=== PATIENT | female | born 1985 | race Caucasian/White ===

== ENCOUNTER 2019-01-23 16:24 | Emergency (ER) | payer OTHER ==
[~2019-01-23 16:24] MED LIST: ISOVUE-370 76%-LOCM 1 ML ONE
[2019-01-23 16:57] LABS: #Eosinphils 0.3 thou/uL (0.0-0.7); #Lymphocytes 2.4 thou/uL (1.20-3.40); #Monocytes 0.4 thou/uL (0.11-0.59); #Neutrophils 4.1 thou/uL (1.40-6.50); %Basophils 0.6 % (0.0-1.0); %Eosinophils 3.9 % (0.0-10.0); %Lymphocytes 33.3 % (21.0-51.0); %Monocytes 4.9 % (0.0-10.0); %Neutrophils 57.4 % (42.0-75.0); Hemoglobin 13.4 g/dL (12.0-16.0); Mean Corpuscular HGB CONC 34.8 g/dL (32.0-36.0); Mean Corpuscular Hemoglobin 32.2 pg (27.0-31.0); Mean Corpuscular Volume 92.5 fL (78.0-98.0); Mean Platelet Volume 6.5 fL (7.4-10.4); Platelet Count 205 thou/uL (130-400); RBC Distribution Width 11.2 % (11.5-14.5); Red Blood Cell (RBC) Count 4.16 mill/uL (4.20-5.40); White Blood Cell (WBC) Count 7.2 thou/uL (4.8-10.8)
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
[2019-01-23 17:10] LABS: Bacteria/HPF 1+ HPF (None Seen); Bilirubin Negative (Negative); Blood, Urine 2+ (Negative); Clarity Turbid (Clear); Glucose, Urine (Dipstick) Normal (Negative); Leukocyte Negative Leu/uL (Negative); Nitrite Negative (Negative); Protein, Urine (Dipstick) Negative (Neg-Trace); Urobilinogen Normal mg/dL (Less than 2)
[2019-01-23 17:19] LABS: ALT (SGPT) 9 U/L (8-55); AST (SGOT) 11 U/L (5-34); Albumin 4.1 g/dL (3.5-5.0); Alkaline Phosphatase 51 U/L (40-150); Anion Gap 12 mmol/L (10-20); BUN (Urea Nitrogen) 10 mg/dL (7.0-18.7); Bilirubin, Total 0.2 mg/dL (0.2-1.2); Calc. Creatinine Clearance 0 mL/min (70-130); Calcium 9.4 mg/dL (7.8-10.44); Carbon Dioxide 24 mmol/L (22-29); Chloride 106 mmol/L (98-107); Estimated GFR-MDRD 86; Globulin 2.7 g/dL (2.4-3.5); Glucose 100 mg/dL (70-105); Potassium 3.4 mmol/L (3.5-5.1); Protein, Total 6.8 g/dL (6.0-8.3); Sodium 139 mmol/L (136-145)
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
[2019-01-23] MEDS ORDERED: HYDROcodone/Acetaminophen 10/325 mg Tablet ONE (19:00)
[2019-01-23] MEDS ORDERED: Ketorolac Tromethamine 30 MG/ML VIAL ONE (19:00)
== END 2019-01-23 20:16 | disposition home or self-care (01) ==
LOC: ERS 16:24
DX: R10.31 Right lower quadrant pain (principal); R10.32 Left lower quadrant pain; M54.2 Cervicalgia; V89.2XXA Person injured in unspecified motor-vehicle accident, traffic, initial encounter
CPT/HCPCS: 71045; 72125; 74177; 80053; 81003; 85025; 93005; 96374; J1885; Q9966

== ENCOUNTER 2020-01-04 11:12 | Outpatient (CLI) | payer OTHER ==
[2020-01-05 13:13] LABS: SARS-CoV-2 MS2 Positive; SARS-CoV-2 N Gene Negative; SARS-CoV-2 S Gene Negative; SARS-CoV-2 orf1ab Negative
== END 2020-01-04 11:13 | disposition home or self-care (01) ==
LOC: LABBT 11:12
PROVIDERS: ATTEND Obstetrics & Gynecology
DX: Z01.812 Encounter for preprocedural laboratory examination (principal); Z11.59 Encounter for screening for other viral diseases
CPT/HCPCS: 87635; U0003

== ENCOUNTER 2020-01-06 11:40 | Inpatient (IN) | payer OTHER ==
[~2020-01-06 11:40] MED LIST changes: +Bupivacaine/Epinephrine 0.25% 30 ML VIAL ONE; -ISOVUE-370 76%-LOCM 1 ML ONE
[2020-01-06] MEDS ORDERED: Zolpidem Tartrate 5 MG TAB PO PRN (12:09)
[2020-01-06] MEDS ORDERED: Lidocaine 1% (PF) 30 ML VIAL SC PRN (12:09)
[2020-01-06] MEDS ORDERED: Misoprostol 100 MCG TAB VAG SCH (12:09)
[2020-01-06] MEDS ORDERED: Carboprost 250 MCG/ML AMP IM PRN (12:09)
[2020-01-06] MEDS ORDERED: Promethazine HCl 25 MG/ML VIAL IM PRN ×2 (12:09→14:18)
[2020-01-06] MEDS ORDERED: Methylergonovine 0.2 MG/ML VIAL IM PRN (12:09)
[2020-01-06] MEDS ORDERED: Acetaminophen 500 MG TAB PO PRN (12:09)
[2020-01-06] MEDS ORDERED: Diphenoxylate HCl/Atropine Tablet PO PRN ×2 (12:09)
[2020-01-06] MEDS ORDERED: hydrALAZINE 20 MG/ML VIAL SLOW IVP PRN ×2 (12:09→17:22)
[2020-01-06] MEDS ORDERED: Misoprostol 200 MCG TAB PR PRN (12:09)
[2020-01-06] MEDS ORDERED: NS w/ Oxytocin 10 units 500 ML IV SCH (12:09)
[2020-01-06] MEDS ORDERED: Ondansetron PF 4 MG/2 ML Vial IVP PRN ×2 (12:09→14:18)
[2020-01-06] MEDS ORDERED: HYDROcodone/Acetaminophen 5/325 mg Tablet PO PRN (12:09)
[2020-01-06] MEDS ORDERED: Ibuprofen 800 MG TAB PO PRN (12:09)
[2020-01-06] MEDS ORDERED: Butorphanol Tartrate 1 MG/ML VIAL SLOW IVP PRN (12:09)
[2020-01-06] MEDS ORDERED: NS / Oxytocin 40 units/1000ml 1,000 ML IV PRN (12:09)
[2020-01-06 12:31] LABS: Hemoglobin 11.8 g/dL (12.0-16.0); Mean Corpuscular HGB CONC 34.2 g/dL (32.0-36.0); Mean Corpuscular Hemoglobin 32.5 pg (27.0-31.0); Mean Platelet Volume 7.8 fL (7.4-10.4); Platelet Count 174 thou/uL (130-400); RBC Distribution Width 14.7 % (11.5-14.5); Red Blood Cell (RBC) Count 3.63 mill/uL (4.20-5.40)
[2020-01-06 13:10] LABS: Syphilis Antibody Nonreactive (Nonreactive); Syphilis Antibody Index 0.02 S/CO (<1.00 Non-Reactive)
[2020-01-06 13:11] LABS: HBSAg Index 0.15 S/CO (0-0.99); Hep B Surf Ag Non-Reactive S/CO (NonReactive)
[2020-01-06] MEDS ORDERED: Fentanyl 4 mcg/Bup 0.1% Cadd 100 ML ONE (13:27)
[2020-01-06] MEDS ORDERED: Acetaminophen 325 MG TAB PO PRN (14:18)
[2020-01-06] MEDS ORDERED: diphenhydrAMINE 50 MG/ML VIAL IVP PRN (14:18)
[2020-01-06] MEDS ORDERED: Naloxone HCl 0.4 mg/ml Vial IVP PRN ×2 (14:18)
[2020-01-06] MEDS ORDERED: EPHEDRINE 25 MG/5 ML SYRINGE SLOW IVP PRN (14:18)
[2020-01-06] MEDS ORDERED: Lactated Ringer's 500 ML IV PRN (14:18)
[2020-01-06] MEDS ORDERED: Fentanyl 4 mcg/Bupivacaine 0.1% Cassette 100 ML EPIDURAL SCH (14:30)
[2020-01-06] MEDS ORDERED: Communication Order-Pharmacy FS PRN (14:30)
[2020-01-06] MEDS ORDERED: NS / Oxytocin 40 units/1000ml 1,000 ML ONE (16:38)
[2020-01-06] MEDS ORDERED: Lidocaine 1% (PF) 30 ML VIAL ONE (16:38)
[2020-01-06] MEDS ORDERED: Bisacodyl 10 MG SUPP PR PRN (17:22)
[2020-01-06] MEDS ORDERED: Adacel (T-DAP) 0.5 ML SYRINGE IM ONE (17:22)
[2020-01-06] MEDS ORDERED: Milk Of Magnesia 30 ML UDCUP PO PRN (17:22)
[2020-01-06] MEDS ORDERED: Lanolin Ointment 7 GM TUBE TOP PRN (17:22)
[2020-01-06] MEDS ORDERED: Benzocaine-Menthol 82.5 ML CAN TOP PRN (17:22)
[2020-01-06] MEDS ORDERED: traMADol HCl 50 MG TAB PO PRN ×2 (17:22→18:30)
--- NOTE | 2020-01-06 17:24 | PDOC.OPDEL ---
OB Operative/Delivery Note Delivery Dr/Surgeon: Teo Pre-Delivery Diagnosis: active labor Procedure/Post Delivery Dx: spontaneous vaginal delivery Weeks gestation: 39 Anesthesia: epidural - Findings A Sex: male - 1 min: 9 - 5 min: 9 - Additional Findings/Plan Placenta delivered: spontaneous Repaired Obstetrical Laceration: none Estimated blood loss: 250 qbl Post delivery plan: routine recovery
[2020-01-06] MEDS ORDERED: NS / Oxytocin 40 units/1000ml 1,000 ML IV SCH (17:30)
[2020-01-06] MEDS: Ibuprofen 800 MG TAB PO SCH (22:11)
[2020-01-06] MEDS: Docusate Calcium (SURFAK) 240 MG CAP PO SCH (22:11)
[2020-01-07] MEDS: Ibuprofen 800 MG TAB PO SCH ×3 (05:42→21:58)
--- NOTE | 2020-01-07 07:49 | PDOC.PP ---
Post Progress Note Post Day #: 0-1 PO intake tolerated: yes Flatus: yes Ambulation: yes Vital Signs (12 hours) Temp Pulse Resp BP Pulse Ox 01/07/20 04:50 98.2 F 59 L 15 117/62 01/07/20 00:35 99.3 F 66 16 104/57 L 01/06/20 22:10 98.3 F 71 15 110/69 01/06/20 21:00 98.9 F 68 15 119/71 01/06/20 20:00 99.2 F 81 15 119/74 100 Weight Weight 159 lb - Physical Examination Abdominal: no distention, appropriately TTP Extremities: negative homans (B) Result Diagrams: 01/06/20 12:22 Additional Labs: Post Labs Blood Type AB POSITIVE 01/06/20 12:22 Hep Bs Antigen Non-Reactive S/CO (NonReactive) 01/06/20 12:22 - Assessment/Plan Post day 0-1. doing well. routine care. d/c in AM.
[2020-01-07] MEDS: Ferrous Sulfate 325 MG TAB PO SCH ×2 (07:50→17:05)
[2020-01-07] MEDS ORDERED: traMADol HCl 50 MG TAB PO PRN (07:51)
[2020-01-07] MEDS: Docusate Calcium (SURFAK) 240 MG CAP PO SCH ×2 (08:29→21:58)
[2020-01-07] MEDS: Prenatal Vitamin 1 TAB PO SCH (08:29)
[2020-01-08] MEDS: Ibuprofen 800 MG TAB PO SCH (06:33)
--- NOTE | 2020-01-08 08:08 | PDOC.PP ---
Post Progress Note Post Day #: 2 PO intake tolerated: yes Flatus: yes Ambulation: yes Weight Weight 159 lb - Physical Examination Abdominal: no distention, appropriately TTP Extremities: negative homans (B) Result Diagrams: 01/06/20 12:22 Additional Labs: Post Labs Blood Type AB POSITIVE 01/06/20 12:22 Hep Bs Antigen Non-Reactive S/CO (NonReactive) 01/06/20 12:22 - Assessment/Plan Post day 2.Doing well. ready for discharge. f/u 6 weeks.
[2020-01-08 08:11] VITALS: BP 104/68; TEMP 97.9
[2020-01-08] MEDS: Docusate Calcium (SURFAK) 240 MG CAP PO SCH (09:08)
[2020-01-08] MEDS: Ferrous Sulfate 325 MG TAB PO SCH (09:08)
[2020-01-08] MEDS: Prenatal Vitamin 1 TAB PO SCH (09:08)
== END 2020-01-08 13:45 | disposition home or self-care (01) | DRG 807 ==
LOC: L&D 11:40 → 3SW 20:41
PROVIDERS: ADMIT Obstetrics & Gynecology; ATTEND Obstetrics & Gynecology
PROC: 10E0XZZ Delivery of Products of Conception, External Approach (ICD-10-PCS; principal; 2020-01-06)
DX: O80 Encounter for full-term uncomplicated delivery (principal); Z37.0 Single live birth; Z3A.39 39 weeks gestation of pregnancy
CPT/HCPCS: 36415; 51702; 85027; 86780; 86850; 86900; 86901; 87340; J2001; J2590